=== PATIENT | female | born 1990 | race Caucasian/White ===

== ENCOUNTER 2024-06-15 18:55 | Inpatient (IN) | payer BC, MEDICAID ==
[2024-06-15 19:13] VITALS: BMI 29.7
[2024-06-15 20:10] LABS: Fetal Membranes Rupture RUPTURE DETECTED (No Rupture)
[2024-06-15] MEDS ORDERED: Lidocaine 1% (PF) 30 ML VIAL SC PRN (20:41)
[2024-06-15] MEDS ORDERED: hydrALAZINE 20 MG/ML VIAL SLOW IVP PRN (20:41)
[2024-06-15] MEDS ORDERED: Ondansetron PF 4 MG/2 ML Vial IVP PRN (20:41)
[2024-06-15] MEDS ORDERED: Acetaminophen 500 MG TAB PO PRN (20:41)
[2024-06-15] MEDS ORDERED: Promethazine HCl 25 MG/ML VIAL IM PRN (20:41)
[2024-06-15] MEDS ORDERED: fentaNYL 50 mcg/mL 1 mL Vial SLOW IVP PRN (20:41)
[2024-06-15] MEDS ORDERED: Oxytocin 30 units/NS 500 ML 500 ML IV SCH ×2 (20:45)
[2024-06-15 21:54] LABS: Hematocrit 37.5 % (34.9-44.5); Hemoglobin 11.9 g/dL (12.0-15.5); Mean Corpuscular HGB CONC 31.7 g/dL (32.0-36.0); Mean Corpuscular Hemoglobin 28.3 pg (27.0-33.0); Mean Corpuscular Volume 89.3 fL (81.6-98.3); Mean Platelet Volume 10.9 fL (7.4-10.4); Platelet Count 266 10x3/uL (150-450); RBC Distribution Width 14.3 % (11.5-14.5); White Blood Cell (WBC) Count 9.78 10x3/uL (3.5-10.5)
[2024-06-15 22:11] LABS: ALT (SGPT) 10 U/L (8-55); AST (SGOT) 14 U/L (5-34); Albumin 2.4 g/dL (3.5-5.0); Alkaline Phosphatase 106 U/L (40-110); Anion Gap 13 mmol/L (10-20); BUN (Urea Nitrogen) 18 mg/dL (7.0-18.7); Bilirubin, Total 0.2 mg/dL (0.2-1.2); Calc. Creatinine Clearance 130 mL/min (70-130); Calcium 8.8 mg/dL (7.8-10.44); Carbon Dioxide 21 mmol/L (22-29); Chloride 108 mmol/L (98-107); Estimated GFR 97; Globulin 4.4 g/dL (2.4-3.5); Glucose 110 mg/dL (70-105); Potassium 3.7 mmol/L (3.5-5.1); Protein, Total 6.8 g/dL (6.0-8.3); Sodium 138 mmol/L (136-145)
[2024-06-15 22:31] LABS: Syphilis Antibody Nonreactive (Nonreactive); Syphilis Antibody Index 0.03 S/CO (<1.00 Non-Reactive)
[2024-06-15 22:32] LABS: HBsAg Index 0.24 S/CO (0-0.99); Hep B Surf Ag - L&D Non-Reactive S/CO (NonReactive)
[2024-06-15] MEDS: Misoprostol 100 MCG TAB VAG SCH (23:27)
[2024-06-16 00:49] LABS: Amphetamine Not Detected (NotDetected); Barbiturates Screen Not Detected (NotDetected); Benzodiazepine Screen Not Detected (NotDetected); Cocaine Metabolite Screen Not Detected (NotDetected); Methadone Not Detected (NotDetected); Methamphetamine Not Detected (NotDetected); Opiate Screen Not Detected (NotDetected); Oxycodone Screen Not Detected (NotDetected); Phencyclidine (PCP) Not Detected (NotDetected); THC/Cannabinoid Screen Detected (NotDetected); Tricyclic Screen Not Detected (NotDetected)
[2024-06-16] MEDS: Lactated Ringer's 1,000 ML IV SCH (01:20)
[2024-06-16] MEDS: fentaNYL/Ropivacaine Epidural 100 ML ONE (01:45)
[2024-06-16] MEDS ORDERED: Moisturizing Cream (Eucerin) 113 GM JAR TOP PRN ×2 (01:49→06:10)
[2024-06-16] MEDS ORDERED: Ondansetron PF 4 MG/2 ML Vial IVP PRN ×3 (01:49→06:10)
[2024-06-16] MEDS ORDERED: Lactated Ringer's 500 ML IV PRN (01:49)
[2024-06-16] MEDS ORDERED: Promethazine HCl 25 MG/ML VIAL IM PRN ×2 (01:49→06:10)
[2024-06-16] MEDS ORDERED: Naloxone HCl 0.4 mg/ml Vial IVP PRN ×4 (01:49→06:10)
[2024-06-16] MEDS ORDERED: Acetaminophen 325 MG TAB PO PRN (01:49)
[2024-06-16] MEDS ORDERED: diphenhydrAMINE 50 MG/ML VIAL IVP PRN (01:49)
[2024-06-16] MEDS ORDERED: fentaNYL 2 mcg/Ropivacaine 0.2% Epidural 100 ML CADD EPIDURAL SCH (02:00)
[2024-06-16] MEDS ORDERED: Communication Order-Pharmacy FS SCH ×2 (02:00→06:15)
[2024-06-16] MEDS: ePHEDrine Sulfate 50 MG/10 ML VIAL SLOW IVP PRN (05:26)
[2024-06-16 06:07] LABS: Analyzer IN Cardio CS NICU; Critical Notified By: clumpkins rt; RapidComm Collect By nur.scis
[2024-06-16 06:09] LABS: Analyzer IN Cardio CS NICU; Critical Notified By: clumpkins rt; pH (Cord, venous) 7.242 (7.250-7.350)
[2024-06-16] MEDS ORDERED: fentaNYL 50 mcg/mL 1 mL Vial SLOW IVP PRN (06:10)
[2024-06-16] MEDS ORDERED: Meperidine HCl/PF 25 MG (1 mL) VIAL SLOW IVP PRN (06:10)
[2024-06-16] MEDS ORDERED: Morphine 4 MG/ML VIAL SLOW IVP PRN (06:10)
[2024-06-16] MEDS ORDERED: Naloxone HCl 0.4 mg/ml Vial IV PRN (06:10)
[2024-06-16] MEDS ORDERED: Ketorolac Tromethamine 30 MG (1 mL) VIAL IVP SCH (06:15)
[2024-06-16] MEDS ORDERED: Misoprostol 200 MCG TAB PR PRN (06:43)
[2024-06-16] MEDS ORDERED: hydrALAZINE 20 MG/ML VIAL SLOW IVP PRN (06:43)
[2024-06-16] MEDS ORDERED: Methylergonovine 0.2 MG/ML VIAL IM PRN (06:43)
[2024-06-16] MEDS ORDERED: Simethicone Chewable 80 MG TAB PO PRN (06:43)
[2024-06-16] MEDS ORDERED: Terbutaline Sulfate 1 MG/ML VIAL SC SCH (06:45)
[2024-06-16] MEDS: Ferrous Sulfate 325 MG TAB PO SCH (08:54)
[2024-06-16] MEDS: Ketorolac Tromethamine 30 MG (1 mL) VIAL IVP PRN (08:59)
[2024-06-16] MEDS: Clindamycin/D5W 900 mg/50 ml Premix Bag ONE (09:53)
[2024-06-16] MEDS: Azithromycin 500 MG VIAL ONE (09:53)
[2024-06-16] MEDS: Boostrix 0.5 ML (Tdap) VIAL (>/=7 yrs of age) IM ONE (09:54)
[2024-06-16] MEDS: Ondansetron PF 4 MG/2 ML Vial ONE (09:54)
[2024-06-16] MEDS: Oxytocin 10 UNITS/ML VIAL ONE (09:54)
[2024-06-16] MEDS: Dexamethasone 10 MG/ML VIAL ONE (09:54)
[2024-06-16] MEDS: Morphine PF 10 MG/10 ML VIAL ONE (09:54)
[2024-06-16] MEDS: Famotidine/PF 20 mg/2ml Vial ONE (09:54)
[2024-06-16] MEDS: Vancomycin 1 GM VIAL ONE (09:54)
[2024-06-16] MEDS: Docusate 100 MG CAP PO SCH (10:32)
[2024-06-16] MEDS: Acetaminophen 325 MG TAB PO SCH (10:32)
[2024-06-16] MEDS: diphenhydrAMINE 50 MG/ML VIAL IVP PRN (10:33)
[2024-06-16 14:58] LABS: Hep C IgG Ab NONREACTIVE S/CO (NonReactive); Hep C Index 0.07 S/CO (0-0.79)
[2024-06-17 05:22] LABS: Hematocrit 25.9 % (34.9-44.5); Hemoglobin 8.4 g/dL (12.0-15.5); Mean Corpuscular HGB CONC 32.4 g/dL (32.0-36.0); Mean Corpuscular Hemoglobin 28.8 pg (27.0-33.0); Mean Corpuscular Volume 88.7 fL (81.6-98.3); Mean Platelet Volume 10.8 fL (7.4-10.4); Platelet Count 185 10x3/uL (150-450); RBC Distribution Width 14.2 % (11.5-14.5); Red Blood Cell (RBC) Count 2.92 10x6/uL (3.90-5.03); White Blood Cell (WBC) Count 9.62 10x3/uL (3.5-10.5)
[2024-06-17] MEDS: Ibuprofen 800 MG TAB PO SCH (13:02)
[2024-06-17 15:36] LABS: Amphetamine Not Detected (NotDetected); Barbiturates Screen Not Detected (NotDetected); Benzodiazepine Screen Not Detected (NotDetected); Cocaine Metabolite Screen Not Detected (NotDetected); Methadone Not Detected (NotDetected); Methamphetamine Not Detected (NotDetected); Opiate Screen Not Detected (NotDetected); Oxycodone Screen Not Detected (NotDetected); Phencyclidine (PCP) Not Detected (NotDetected); THC/Cannabinoid Screen Not Detected (NotDetected); Tricyclic Screen Not Detected (NotDetected)
[2024-06-17] MEDS: HYDROmorphone 2 MG TAB PO PRN (20:50)
[2024-06-19 07:48] VITALS: BP 114/71; TEMP 98.6
== END 2024-06-19 17:20 | disposition home or self-care (01) | DRG 786 ==
LOC: CSHLD/OP 18:55 → CSHLD 21:01 → CSHPP 06-16 09:30
PROVIDERS: ADMIT Obstetrics & Gynecology; ATTEND Obstetrics & Gynecology
PROC: 10D00Z1 Extraction of Products of Conception, Low, Open Approach (ICD-10-PCS; principal; 2024-06-15)
PROC: 4A033R1 Measurement of Arterial Saturation, Peripheral, Percutaneous Approach (ICD-10-PCS; 2024-06-16)
DX: O76 Abnormality in fetal heart rate and rhythm complicating labor and delivery (principal); O45.93 Premature separation of placenta, unspecified, third trimester; O48.0 Post-term pregnancy; Z37.0 Single live birth; Z3A.40 40 weeks gestation of pregnancy; Z79.82 Long term (current) use of aspirin
CPT/HCPCS: 36415; 51702; 80053; 80074; 80306; 82805; 84112; 85027; 86780; 86803; 86850; 86900; 86901; 87340; 87389; 99285; J1100; J1200; J1885; J2274; J2405; J2590; J3490; J7120